=== PATIENT | male | born 1950 | race Caucasian/White ===

== ENCOUNTER → 2017-11-16 | Outpatient (CLI) | payer OTHER ==
[~2017-11-16] MED LIST: VENL150ER PO
== END ==
LOC: LAB SHORT 07:45 → PLD 07:45
DX: D18.01 Hemangioma of skin and subcutaneous tissue (principal)
CPT/HCPCS: 88305

== ENCOUNTER 2018-01-18 10:12 | Emergency (ER) | payer OTHER ==
[~2018-01-18] VITALS: Ht 167.6 cm; Wt 72.6 kg
[2018-01-18] MEDS ORDERED: Augmentin 875-1 EACH PO (10:19)
[2018-01-18] MEDS ORDERED: Vibramycin100 MG PO (11:23)
== END 2018-01-18 11:45 | disposition home or self-care (01) ==
LOC: ER 10:12
DX: S61.451A Open bite of right hand, initial encounter (principal); W54.0XXA Bitten by dog, initial encounter; Z79.899 Other long term (current) drug therapy; Z79.2 Long term (current) use of antibiotics
CPT/HCPCS: 73130; 96365; 99283-25; J2543

== ENCOUNTER → 2018-10-11 | Outpatient (CLI) | payer OTHER ==
[~2018-10-11] MED LIST changes: +Augmentin 875-1 EACH PO; +Vibramycin100 MG PO
== END | disposition home or self-care (01) ==
LOC: LAB SHORT 07:47 → PLD 07:47
DX: L57.0 Actinic keratosis (principal); L30.9 Dermatitis, unspecified; R23.4 Changes in skin texture
CPT/HCPCS: 88305; 88313

== ENCOUNTER → 2020-06-24 | Outpatient (CLI) | payer OTHER | END | disposition home or self-care (01) | LOC: LAB SHORT 17:05 → PLD 17:05 | DX: D48.5 Neoplasm of uncertain behavior of skin (principal) | CPT/HCPCS: 88305 ==

== ENCOUNTER 2021-07-20 07:40 | Day surgery (SDC) | payer OTHER ==
[~2021-07-20] VITALS: Ht 167.6 cm; Wt 75.3 kg
[~2021-07-20 07:40] MED LIST changes: +Hytrin1 MG PO
--- NOTE | 2021-07-20 08:24 | NUR ---
[facility] in [facility] warming gown applied. Patient states colon prep results clear. History, Chart, Medications and Allergies reviewed before start of procedure.Lungs clear T/O to Auscultation. Patient confirms NPO status and agrees with scheduled surgery. Pre-Op teaching done. Pt verbalizes understanding. Patient States Post-Procedure ride home has been arranged.
--- NOTE | 2021-07-20 08:52 | NUR ---
07/20/21 0852 Lucía Dueñas History, Chart, Medications and Allergies reviewed before start of procedure. Patient confirms NPO status and agrees with scheduled surgery. 3-LEAD EKG REVIEWED WITH PHYSICIAN PRIOR TO START OF PROCEDURE. MONITOR INTACT WITH CONTINUOUS PULSE OXIMETRY AND INTERMITTENT BP. PATIENT DETERMINED TO BE ASA APPROPRIATE FOR PROPOFOL SEDATION PRIOR TO START OF PROCEDURE BY DR. VILLEGAS.
--- NOTE | 2021-07-20 09:31 | NUR ---
RECIEVED REPORT FROM YUAN SALTER RN. PT ALERT AND ORIENTED, VISITING WITH NURSE AT BEDSIDE. PT ABLE TO REPOSITION SELF IN BED. TOLERATING PO FOOD AND FLUIDS WELL. PT STATES FEELING A LITTLE DIZZY, BUT ALMOST READY TO BE DISCHARGED.
--- NOTE | 2021-07-20 09:55 | NUR ---
Patient up to Ambulate independently. Gait steady. Discharge instructions reviewed with patient. Patient verbalizes understanding. Copy given to patient to take home. Patient States Post-Procedure ride home has been arranged. Discharged via wheelchair to private car for ride home. ALL BELONGINGS RETURNED TO PATIENT.
== END 2021-07-20 23:12 | disposition home or self-care (01) ==
LOC: ORSCMMR 07:40 → ORD 08:30 → ORSCMMR 23:12
PROVIDERS: Internal Medicine Gastroenterology
PROC: 0DBP8ZX Excision of Rectum, Via Natural or Artificial Opening Endoscopic, Diagnostic (ICD-10-PCS; principal; 2021-07-20 08:30)
DX: Z12.11 Encounter for screening for malignant neoplasm of colon (principal); Z86.010 Personal history of colon polyps; D12.8 Benign neoplasm of rectum; F32.A Depression, unspecified; Z79.899 Other long term (current) drug therapy
CPT/HCPCS: 88305; J2704; J7120